=== PATIENT | female | born 1985 | race Caucasian/White ===

== ENCOUNTER → 2017-08-02 | Outpatient (CLI) | payer BC ==
[~2017-08-02] MED LIST: ALBU8.5H8 INH; BECL8.7H NS; CETI-158 PO; CHOL10002 PO; FISH1CAP PO; LACT1CAP35 PO; MOME13HF2 INH; MONT10TA6 PO; NORE1TAB11 PO
== END | disposition home or self-care (01) ==
LOC: CFH 15:11 → EDSTATUS 16:00
PROVIDERS: ATTEND Physician Assistant
DX: S63.682A Other sprain of left thumb, initial encounter (principal); X58.XXXA Exposure to other specified factors, initial encounter; Y93.89 Activity, other specified; Y92.89 Other specified places as the place of occurrence of the external cause; Y99.8 Other external cause status